=== PATIENT | female | born 1965 | race Caucasian/White ===

== ENCOUNTER → 2016-02-20 | Outpatient (CLI) | payer OTHER | LOC: RAD 14:56 | DX: N63 Unspecified lump in breast (principal); R92.8 Other abnormal and inconclusive findings on diagnostic imaging of breast ==

== ENCOUNTER → 2016-02-24 | Outpatient (CLI) | payer OTHER | LOC: RAD 01:05 | DX: N63 Unspecified lump in breast (principal); R92.0 Mammographic microcalcification found on diagnostic imaging of breast ==